=== PATIENT | male | born 1980 | race Caucasian/White ===

== ENCOUNTER → 2023-03-16 | Day surgery (SDC) | payer OTHER ==
[~2023-03-16] MED LIST: Dexamethasone 4 MG/ML SDV ONE; HYDROmorphone 1 MG/ML Syringe ONE; Ketamine 200 MG/20 ML MDV ONE; Ketorolac 30 MG/ML SDV ONE; Lidocaine 2% 20 ML MDV ONE; Midazolam 1 MG/ML 2 ML SDV ONE; Morphine 4 MG/ML VIAL ONE; Ondansetron 4 MG/2 ML SDV ONE; Propofol 200 MG/20 ML SDV ONE; fentaNYL 50 MCG/ML SDV ONE
[2023-03-16] MEDS: Lactated Ringers 1,000 ML IV SCH (08:12)
[2023-03-16] MEDS: ceFAZolin 2 GM Vial IVPUSH ONE (08:50)
[2023-03-16] MEDS: Lidocaine 1% 30 ML SDV SUBCUT ONE (10:12)
== END ==
LOC: CC.SDS 07:41
PROVIDERS: ATTEND Surgery
DX: K43.2 Incisional hernia without obstruction or gangrene (principal); G47.33 Obstructive sleep apnea (adult) (pediatric); J35.1 Hypertrophy of tonsils; Z79.899 Other long term (current) drug therapy
CPT/HCPCS: 00752; J0690; J1100; J1170; J1885; J2250; J2270; J2405; J2704; J3010; J3490; J7120

== ENCOUNTER 2025-04-01 07:01 | Day surgery (SDC) | payer OTHER ==
[2025-04-01] MEDS: Lactated Ringers 1,000 ML IV SCH (07:30)
[2025-04-01] MEDS ORDERED: Propofol 200 MG/20 ML SDV ONE ×2 (08:00)
[2025-04-01] MEDS ORDERED: fentaNYL 50 MCG/ML SDV ONE ×5 (08:00)
[2025-04-01] MEDS ORDERED: Ondansetron 4 MG/2 ML SDV ONE (08:00)
[2025-04-01] MEDS ORDERED: Ketorolac 30 MG/ML SDV ONE ×2 (08:00)
[2025-04-01] MEDS ORDERED: Midazolam 1 MG/ML 2 ML SDV ONE (08:00)
[2025-04-01] MEDS ORDERED: Ketamine 200 MG/20 ML MDV ONE (08:00)
[2025-04-01] MEDS ORDERED: Dexamethasone 4 MG/ML SDV ONE ×2 (08:00)
[2025-04-01] MEDS ORDERED: Bupivacaine Liposome 1.3% 20 ML SDV INJECT ONE (10:31)
== END 2025-04-01 15:30 | disposition home or self-care (01) ==
LOC: CC.SDS 07:01
PROVIDERS: ATTEND Surgery
DX: K43.2 Incisional hernia without obstruction or gangrene (principal); K42.9 Umbilical hernia without obstruction or gangrene; G47.33 Obstructive sleep apnea (adult) (pediatric); K51.90 Ulcerative colitis, unspecified, without complications; Z79.899 Other long term (current) drug therapy
CPT/HCPCS: 00790; 49617; C1781; J0666; J0690; J1100; J1885; J2003; J2250; J2405; J2704; J2765; J3010; J3490; J7120